=== PATIENT | male | born 1985 | race Caucasian/White ===

== ENCOUNTER 2016-09-10 15:21 | Emergency (ER) | payer SELFPAY ==
[~2016-09-10] VITALS: Wt 99.8 kg
[~2016-09-10 15:21] MED LIST: KETOROLAC10 MG PO; Orphenadrine C100 MG PO
[2016-09-10] MEDS ORDERED: BACTRIM DS 8001 TA1 PO (15:44)
[2016-09-10] MEDS ORDERED: CLINDAMYCIN HC300 MG PO (15:44)
[2016-09-10] MEDS ORDERED: Motrin,Rufen800 MG PO (15:44)
== END 2016-09-10 15:51 | disposition home or self-care (01) ==
LOC: ED 15:21
DX: L02.31 Cutaneous abscess of buttock (principal); Z88.0 Allergy status to penicillin

== ENCOUNTER 2016-10-19 21:27 | Emergency (ER) | payer SELFPAY ==
[~2016-10-19] VITALS: Ht 182.8 cm; Wt 99.8 kg
[~2016-10-19 21:27] MED LIST changes: +BACTRIM DS 8001 TA1 PO; +CLINDAMYCIN HC300 MG PO; +Motrin,Rufen800 MG PO
[2016-10-19] MEDS ORDERED: ANAPROX DS550 MG PO (22:16)
== END 2016-10-19 22:19 | disposition home or self-care (01) ==
LOC: ED 21:27
DX: S43.402A Unspecified sprain of left shoulder joint, initial encounter (principal); F17.200 Nicotine dependence, unspecified, uncomplicated; Z88.0 Allergy status to penicillin; W18.39XA Other fall on same level, initial encounter; Y93.89 Activity, other specified; Y92.89 Other specified places as the place of occurrence of the external cause; Y99.8 Other external cause status